=== PATIENT | female | born 1940 | race Caucasian/White ===

== ENCOUNTER 2017-07-06 12:31 | Outpatient (CLI) | payer MEDICARE, OTHER ==
--- NOTE | 2017-07-07 15:52 | DEXA Report ---
DEXA: 07/06/2017 CLINICAL INDICATION: Postmenopausal. TECHNIQUE: Dual energy x-ray absorptiometry (DXA) was performed on a S3Bubble system. Regions measured are the AP spine, femoral neck, and, if needed, forearm. COMPARISON: None. In accordance with the International Society for Clinical Densitometry (ISCD) guidelines, data from previous exams may be reanalyzed using current recommendations and techniques. This is done to allow a more accurate basis for comparison with the current study. FINDINGS The data for the lumbar spine is as follows: REGION BMD (g/cm/cm) T-SCORE Z-SCORE L1 0.804 -2.7 -1.7 L2 0.882 -2.7 -1.7 L3 1.165 -0.3 0.7 L4 1.217 0.1 1.1 TOTAL 1.035 -1.2 -0.2 NOTE: All evaluable vertebrae are used for classification. The data for the hip is as follows: REGION BMD (g/cm/cm) T-SCORE Z-SCORE Neck 0.762 -2.0 -0.4 TOTAL 0.808 -1.6 -0.2 NOTE: The femoral neck or total proximal femur, whichever is lowest, is used for classification. IMPRESSION: THE WHO CLASSIFICATION BASED ON THE INTERNATIONAL REFERENCE STANDARD IS OSTEOPENIA. THE FRACTURE RISK IS INCREASED. RECOMMENDATION: Patients with diagnosis of osteoporosis or osteopenia should have regular bone mineral density assessment. For those eligible for Medicare, routine testing is allowed once every 2 years. Testing frequency can be increased for patients who have rapidly progressing disease or for those who are receiving medical therapy to restore bone mass. COMMENT: World Health Organization (WHO) definitions for osteoporosis and osteopenia: NORMAL BMD: T-score at -1.0 or higher, fracture risk is low. OSTEOPENIA BMD: T-score between -1.0 and -2.5, fracture risk is increased. OSTEOPOROSIS BMD: T-score at -2.5 or lower, fracture risk high. National Osteoporosis Foundation recommends: 1. Obtain adequate dietary calcium (at least 1200 mg per day) and vitamin D (400 -800 international units per day). 2. Participate, as appropriate, in regular weightbearing and muscle- strengthening exercise. 3. Avoid tobacco use and reduce alcohol and caffeine intake. 4. For more detailed information see the website at www.NOF.org. MTDD
== END 2017-07-06 12:32 | disposition home or self-care (01) ==
LOC: DI 12:31
PROVIDERS: ATTEND Physician Assistant
DX: Z13.820 Encounter for screening for osteoporosis (principal); M85.89 Other specified disorders of bone density and structure, multiple sites; Z78.0 Asymptomatic menopausal state
CPT/HCPCS: 77080

== ENCOUNTER 2017-07-06 12:31 | Outpatient (CLI) | payer MEDICARE, OTHER ==
--- NOTE | 2017-07-07 13:13 | Mammography Report ---
DIGITAL SCREENING MAMMOGRAM: 07/06/2017 CLINICAL INDICATION: A 76-year-old with history of benign right breast biopsy for screening. COMPARISON: 06/2015, 11/2011, 09/2010, 05/2008 TECHNIQUE: Routine CC and MLO projections were obtained of the breasts. FINDINGS: The breasts again demonstrate scattered fibroglandular densities. Punctate, typically mitul ign calcifications are present. Biopsy marker in the right breast is stable. No suspicious masses, clustered microcalcifications, or regions of architectural distortion are identified. IMPRESSION: BENIGN FINDINGS. RECOMMENDATION: Routine annual screening unless otherwise clinically indicated. BIRADS CATEGORY 2 - BENIGN FINDINGS. STANDARD QUALIFYING STATEMENTS 1. This examination was reviewed with the aid of Computer-Aided Detection (CAD). 2. A negative or benign imaging report should not delay biopsy if clinically suspicious findings are present. Consider surgical consultation if warranted. More than 5% of cancers are not identified by i maging. 3. Dense breasts may obscure an underlying neoplasm. JOB #: [id number] EXT JOB #:[id number]
== END 2017-07-06 12:32 | disposition home or self-care (01) ==
LOC: DI 12:31
PROVIDERS: ATTEND Physician Assistant
DX: Z12.31 Encounter for screening mammogram for malignant neoplasm of breast (principal)
CPT/HCPCS: 77067

== ENCOUNTER 2018-09-10 11:54 | Outpatient (CLI) | payer MEDICARE, OTHER ==
--- NOTE | 2018-09-11 06:59 | XRAY Report ---
Reason: PAIN IN RIGHT FINGER Procedure Date: 09/10/2018 Accession Number: [id number] / [id number] Procedure: XR - Hand 3 View RT CPT Code: FULL RESULT: EXAM: RIGHT HAND RADIOGRAPHY EXAM DATE: 09/10/2018 12:14 PM. CLINICAL HISTORY: Pain in right finger. COMPARISON: None. TECHNIQUE: 3 views. FINDINGS: Bones: Bone density is within normal limits for age. No acute fractures appreciated. Joints: There is significant degenerative productive arthritis throughout the digits and at base of thumb, with greatest involvement of the fourth IP joint. There is prominent joint space narrowing of the STT joint with subchondral sclerosis. Soft Tissues: Mild soft tissue swelling of the proximal fourth digit. IMPRESSION: Significant, diffuse productive arthritis. No acute fracture appreciated. RADIA
== END 2018-09-10 11:55 | disposition home or self-care (01) ==
LOC: DI 11:54
PROVIDERS: ATTEND Physician Assistant
DX: M19.041 Primary osteoarthritis, right hand (principal)

== ENCOUNTER 2018-11-05 10:28 | Emergency (ER) | payer MEDICARE, OTHER ==
--- NOTE | 2018-11-05 11:59 | ED Physician Documentation ---
PD HPI DYSPNEA - Stated complaint Stated Complaint: SOA - Chief complaint Chief Complaint: Resp - History obtained from History obtained from: Patient - History of Present Illness Timing - onset: How many days ago (5-6) Timing - onset during: Rest, Light activity Timing - details: Gradual onset, Still present Inciting event(s): URI, Immobilization/travel (flew to [place] and then was on a cruise. She says she started feeling dyspnea on arrival there, felt it was the heat/humidity. Was on cruise 5-6 days and ate regular foods. Noted leg swelling both legs. Flew back just today and is feeling worse dyspnea and leg swelling.). No: Out of meds Worsened by: Exertion, Laying flat, Coughing (has mild nonproductive cough.) Associated symptoms: Cough, Chest pain / discomfort, Bilateral edema. No: Fever, Wheezing Similar symptoms before: Has not had sx before Recently seen: Not recently seen Review of Systems Constitutional: denies: Fever Nose: reports: Congestion Cardiac: reports: Chest pain / pressure, Pedal edema. denies: Palpitations, Calf pain Respiratory: reports: Dyspnea, Cough, Wheezing GI: denies: Abdominal Pain, Nausea, Vomiting, Diarrhea Skin: denies: Rash, Lesions PD PAST MEDICAL HISTORY - Past Medical History Cardiovascular: Hypertension Respiratory: Asthma Endocrine/Autoimmune: Type 2 diabetes, HyPOthyroidism GI: None : None, Incontinence HEENT: None Psych: None Musculoskeletal: Osteoarthritis Derm: None - Past Surgical History Derm: Skin cancer surgery - Present Medications Home Medications: Ambulatory Orders Medication Instructions Recorded Confirmed Furosemide 25 mg PO DAILY 09/02/15 11/05/18 Losartan [Cozaar] 25 mg PO DAILY 09/02/15 11/05/18 metFORMIN [Glucophage] 500 mg ORAL BID 09/02/15 11/05/18 Fluticasone/Salmeterol [Advair 09/16/15 09/16/15 500-50 Diskus] Albuterol Sulfate [Proair Hfa 1 - 2 puffs INH Q4H PRN 11/05/18 11/05/18 Inhaler] Dexamethasone [Decadron] 4 mg PO DAILY #5 tablet 11/05/18 - Allergies Allergies/Adverse Reactions: Allergies Allergy/AdvReac Type Severity Reaction Status Date / Time No Known Drug Allergies Allergy Verified 11/05/18 10:38 PD ED PE NORMAL - Vitals Vital signs reviewed: Yes - General General: Alert and oriented X 3, No acute distress, Well developed/nourished - HEENT HEENT: Ears normal, Pharynx benign - Neck Neck: Supple, no meningeal sign, No adenopathy, No JVD - Cardiac Cardiac: RRR - Respiratory Respiratory: Clear bilaterally - Abdomen Abdomen: Soft, Non tender - Derm Derm: Warm and dry, No rash. No: Normal color - Extremities Extremities: No tenderness to palpate, Normal ROM s pain, No calf tenderness / cord, Other (2+ edema in both lower legs up to just below the knees. ) - Neuro Neuro: Alert and oriented X 3, No motor deficit, No sensory deficit Results - Vitals Vitals: Vital Signs - 24 hr 11/05/18 11/05/18 11/05/18 10:35 12:33 12:38 Temperature 36 C L Heart Rate 67 61 59 L Respiratory 22 18 16 Rate Blood Pressure 198/108 H 180/94 H 180/94 H O2 Saturation 97 98 97 11/05/18 11/05/18 13:56 15:04 Temperature Heart Rate 65 66 Respiratory 18 18 Rate Blood Pressure 159/64 H 153/64 H O2 Saturation 98 98 Oxygen O2 Source Room air - Labs Labs: Laboratory Tests 11/05/18 11/05/18 11/05/18 12:02 12:02 12:02 WBC 5.5 RBC 4.31 Hgb 12.3 Hct 36.3 L MCV 84.3 MCH 28.5 MCHC 33.8 RDW 14.7 Plt Count 226 MPV 8.3 Neut # (Auto) 3.6 Lymph # (Auto) 1.2 L [place] # (Auto) 0.4 Eos # (Auto) 0.2 Baso # (Auto) 0.0 Absolute Nucleated RBC 0.00 Nucleated RBC % 0.0 D-Dimer Sodium 138 Potassium 4.0 Chloride 104 Carbon Dioxide 25 Anion Gap 9.0 BUN 16 Creatinine 0.9 Estimated GFR (MDRD) 60 L Glucose 115 H Calcium 8.7 Magnesium Total Bilirubin 0.7 AST 26 ALT 31 Alkaline Phosphatase 52 Troponin I < 0.04 B-Natriuretic Peptide Total Protein 7.0 Albumin 3.6 Globulin 3.4 Albumin/Globulin Ratio 1.1 Lipase 40 11/05/18 11/05/18 11/05/18 12:02 12:02 12:02 WBC RBC Hgb Hct MCV MCH MCHC RDW Plt Count MPV Neut # (Auto) Lymph # (Auto) [place] # (Auto) Eos # (Auto) Baso # (Auto) Absolute Nucleated RBC Nucleated RBC % D-Dimer 296.9 H Sodium Potassium Chloride Carbon Dioxide Anion Gap BUN Creatinine Estimated GFR (MDRD) Glucose Calcium Magnesium 2.3 Total Bilirubin AST ALT Alkaline Phosphatase Troponin I B-Natriuretic Peptide 190 H Total Protein Albumin Globulin Albumin/Globulin Ratio Lipase - Rads (name of study) chest xray Radiology: Prelim report reviewed (some vascular congestion with edema. FLattening of diaphragm c/w overinflation/COPD. ) PD MEDICAL DECISION MAKING - ED course Complexity details: reviewed results (chest xray showing some vascular congestion. BNP is some elevated. Lung sounds are c/w vascular congestion. Her d-dimer is mildly elevated by our lab range, but is in normal range when referencing EM literature stating 500 to be the demarcation from normal to abn. Other labs are good. Some elvation COPF), re-evaluated patient (improved with diuresis, has had about 1300 ml out here in ED.), considered differential (concern for colds, flu, bacterial secondary infection, CHF/IN, PTX, PE, anemia.), d/w patient Departure - Departure Disposition: 01 Home, Self Care Clinical Impression: Shortness of breath Congestive heart failure Qualifiers: Heart failure type: unspecified Heart failure chronicity: acute Qualified Code(s): I50.9 - Heart failure, unspecified Exacerbation of asthma Qualifiers: Asthma severity: mild Asthma persistence: intermittent Qualified Code(s): J45.21 - Mild intermittent asthma with (acute) exacerbation Condition: Stable Record reviewed to determine appropriate education?: Yes Instructions: ED CHF General Follow-Up: Tia Lipscomb PA [Primary Care Provider] - Prescriptions: Dexamethasone [Decadron] 4 mg PO DAILY #5 tablet Comments: It appears like an exacerbation of your asthma combined with certainly some extra fluid retention leading to the trouble breathing. For the asthma component, use your albuterol inhaler 2 puffs 4 times a day for the next week or so regularly. Also add Decadron steroid for bronchial inflamma tion daily for 5 more days. For the fluid retention, I would double the dose of your furosemide diuretic. I would take your normal morning dose and then take a second dose at early afternoon, around 12-2 or so. I would do that for 3-5 more days. If you are able to check your blood pressure at home, over the next several days if your blood pressure is elevated then also take double your losartan (so 50 instead of 25 mg) daily for the next few days. After the next few days if you are feeling better in your edema is improved then just go back to your normal doses. Discharge Date/Time: 11/05/18 15:05
[2018-11-05 12:10] LABS: BASOPHILS % (AUTO) 0.9 %; EOSINOPHILS # (AUTO) 0.2 10^3/uL (0.0-0.7); EOSINOPHILS % (AUTO) 3.2 %; HGB - HEMOGLOBIN 12.3 g/dL (12.0-16.0); LYMPHOCYTES # (AUTO) 1.2 10^3/uL (1.5-3.5); LYMPHOCYTES % (AUTO) 22.5 %; MEAN CORPUSCULAR HEMOGLOBIN 28.5 pg (27.0-31.0); MEAN CORPUSCULAR HGB CONC 33.8 g/dL (32.0-36.0); MEAN CORPUSCULAR VOLUME 84.3 fL (81.0-99.0); MEAN PLATELET VOLUME 8.3 fL (7.9-10.8); MONOCYTES # (AUTO) 0.4 10^3/uL (0.0-1.0); MONOCYTES % (AUTO) 7.1 %; NEUTROPHILS # (AUTO) 3.6 10^3/uL (1.5-6.6); NEUTROPHILS % (AUTO) 66.3 %; PLT - PLATELET COUNT 226 10^3/uL (130-450); RED BLOOD COUNT 4.31 10^6/uL (4.20-5.40); RED CELL DISTRIBUTION WIDTH 14.7 % (12.0-15.0); WHITE BLOOD COUNT 5.5 x10^3/uL (4.8-10.8)
[2018-11-05 12:23] LABS: ALBUMIN 3.6 g/dL (3.2-5.5); ALBUMIN/GLOBULIN RATIO 1.1 (1.0-2.2); BILIRUBIN,TOTAL 0.7 mg/dL (0.2-1.0); CALCIUM 8.7 mg/dL (8.5-10.3); CREATININE 0.9 mg/dL (0.4-1.0)
[2018-11-05] MEDS ORDERED: FUROSEMIDE 40 MG/4 ML VIAL IVP STA (12:33)
[2018-11-05] MEDS ORDERED: ALBUTEROL NEB 2.5 MG/3 ML INH STA (12:33)
[2018-11-05] MEDS ORDERED: NITROGLYCERIN SL 0.4 MG TABLET SL STA (12:35)
--- NOTE | 2018-11-05 12:52 | XRAY Report ---
Reason: SOA Procedure Date: 11/05/2018 Accession Number: [id number] / [id number] Procedure: XR - Chest 2 View X-Ray CPT Code: 49921 FULL RESULT: EXAM: CHEST RADIOGRAPHY EXAM DATE: 11/05/2018 11:18 AM. CLINICAL HISTORY: Shortness of breath. COMPARISON: CHEST 2 VIEW PA/LAT 05/05/2015 10:41 AM. TECHNIQUE: 2 views. FINDINGS: Lungs/Pleura: Lungs are hyperexpanded with flattening of the diaphragm, similar to prior. Mild pulmonary vascular congestion and interstitial prominence appears increased compared to prior. No focal pulmonary consolidation. There are trace bilateral pleural effusions. No pneumothorax. Mediastinum: There is mild enlargement of the cardiac silhouette, increased compared to prior. There is mild atherosclerotic calcification of the aortic arch. Other: No acute osseous abnormality. There are mild degenerative disk changes of the thoracic spine. IMPRESSION: 1. Mild CHF/fluid overload pattern including mild pulmonary vascular congestion, interstitial prominence, and mild cardiomegaly. Findings appear worsened compared to the prior exam from 05/05/2015. 2. Trace bilateral pleural effusions. 3. Lungs are hyperexpanded with flattening of the diaphragm, similar to prior, suggestive of COPD/emphysema. RADIA
[2018-11-05 15:04] VITALS: BP 153/64
== END 2018-11-05 15:05 | disposition home or self-care (01) ==
LOC: ED 10:28
DX: I11.0 Hypertensive heart disease with heart failure (principal); I50.9 Heart failure, unspecified; J45.21 Mild intermittent asthma with (acute) exacerbation; E11.9 Type 2 diabetes mellitus without complications; Z79.84 Long term (current) use of oral hypoglycemic drugs
CPT/HCPCS: 36415; 71046; 80053; 83690; 83735; 83880; 84484; 85025; 85379; 93005; 96374; 99283; 99284; A9270

== ENCOUNTER 2018-11-23 11:11 | Outpatient (CLI) | payer MEDICARE, OTHER | END 2018-11-23 11:12 | disposition home or self-care (01) | LOC: DI 11:11 | PROVIDERS: ATTEND Physician Assistant | DX: I50.9 Heart failure, unspecified (principal) | CPT/HCPCS: 36415; 83880; 93306 ==

== ENCOUNTER 2018-11-23 11:57 | Outpatient (CLI) | payer MEDICARE, OTHER | END 2018-11-23 11:58 | disposition home or self-care (01) | LOC: LAB 11:57 | PROVIDERS: ATTEND Physician Assistant | DX: I50.9 Heart failure, unspecified (principal) | CPT/HCPCS: 36415; 83880 ==

== ENCOUNTER 2018-12-06 13:32 | Outpatient (CLI) | payer MEDICARE, OTHER ==
[2018-12-06 14:11] LABS: CALCIUM 9.2 mg/dL (8.5-10.3)
[2018-12-06 14:51] LABS: BILIRUBIN,URINE NEGATIVE (NEGATIVE); GLUCOSE, URINE (UA) NEGATIVE (NEGATIVE); KETONES,URINE (UA) NEGATIVE (NEGATIVE); LEUKOCYTE ESTERASE, URINE TRACE (NEGATIVE); NITRITE,URINE NEGATIVE (NEGATIVE); OCCULT BLOOD,URINE NEGATIVE (NEGATIVE); PROTEIN,URINE NEGATIVE (NEGATIVE); UROBILINOGEN,URINE 0.2 (NORMAL) E.U./dL (NORMAL)
[2018-12-06 15:00] LABS: CLARITY,URINE HAZY (CLEAR)
== END 2018-12-06 13:33 | disposition home or self-care (01) ==
LOC: LAB 13:32
PROVIDERS: ATTEND Internal Medicine Cardiovascular Disease
DX: I50.9 Heart failure, unspecified (principal)
CPT/HCPCS: 36415; 80048; 81003

== ENCOUNTER 2019-03-07 05:56 | Outpatient (CLI) | payer MEDICARE, OTHER | END 2019-03-07 05:57 | disposition critical access hospital (66) | LOC: EMS 05:56 | PROVIDERS: ATTEND Surgery | DX: R53.1 Weakness (principal) | CPT/HCPCS: A0425; A0429 ==

== ENCOUNTER 2019-03-07 06:18 | Observation (INO) | payer MEDICARE, OTHER ==
[2019-03-07] MEDS ORDERED: ALBUTEROL NEB 2.5 MG/3 ML INH STA (06:44)
--- NOTE | 2019-03-07 06:44 | ED Physician Documentation ---
<Richi Vaca - Last Filed: 03/07/19 12:55> History of Present Illness - Stated complaint Stated Complaint: WEAKNESS - Chief complaint Chief Complaint: Neuro PD PAST MEDICAL HISTORY - Present Medications Home Medications: Ambulatory Orders Medication Instructions Recorded Confirmed Losartan [Cozaar] 25 mg PO DAILY 09/02/15 03/07/19 RX: Furosemide 20 mg PO DAILY PRN 09/02/15 03/07/19 RX: metFORMIN [Glucophage] 1,000 mg ORAL DAILY 09/02/15 03/07/19 Albuterol Sulfate [Proair Hfa 1 - 2 puffs INH Q4H PRN 11/05/18 03/07/19 Inhaler] Cholecalciferol (Vitamin D3) 1 cap PO DAILY 03/07/19 03/07/19 [Vitamin D3] Fluticasone/Salmeterol [Advair 1 puffs INH BID 03/07/19 03/07/19 250-50 Diskus] [place]-3/Dha/Epa/Fish Oil [Fish Oil 1 cap PO DAILY 03/07/19 03/07/19 1,000 mg Softgel] Rosuvastatin Calcium [Crestor] 5 mg PO DAILY 03/07/19 03/07/19 metFORMIN [Glucophage] 500 mg PO 1700 03/07/19 03/07/19 - Allergies Allergies/Adverse Reactions: Allergies Allergy/AdvReac Type Severity Reaction Status Date / Time No Known Drug Allergies Allergy Verified 11/05/18 10:38 PD ED PE NORMAL - Derm Derm: Other (left lower leg, lateral aspect with some local swelling, redness and warmth. No pustules nor vesicles.) - Extremities Extremities: No calf tenderness / cord, Other Results - Rads (name of study) chest xray Radiology: Prelim report reviewed (increased vascularity and interstitial, consider CHF), See rad report PD MEDICAL DECISION MAKING - ED course Complexity details: re-evaluated patient (The patient is having improved breathing after nebulizer treatment. I assumed care of the patient from Dr. Archer. Her oxygen saturations are between 91 and 93% on room air lying down. However when she was subsequently stood up to try attempting ambulation, she had enough general weakness to require 1 or 2 people assistance in getting up and her oxygenation did go down below 89% while standing. She was placed back on 2 L nasal cannula oxygen. She does have the cough and fever she has had for several days and has increased in the last day or 2. This sounds [place] or clinically pneumonia though her chest x-ray does not show infiltrates per se. Her BNP is not that high and her lungs do not sound wet so I do not think she has CHF per se even though the chest x-ray is perhaps suggestive of that.), d/w sales and service consultant (Hospitalist) Departure - Departure Disposition: ED Place in Observation Clinical Impression: Fever, Weakness generalized, Exacerbation of asthma, Lower resp. tract infection, Lower extremity cellulitis Condition: Stable Record reviewed to determine appropriate education?: Yes Discharge Date/Time: 03/07/19 13:22 <Liss Guan - Last Filed: 03/07/19 21:04> History of Present Illness - History obtained from History obtained from: Patient - History of Present Illness Timing: Yesterday - Additonal information Additional information: This is an 78-year-old woman who lives alone last night she was getting up off the toilet and had walked out towards the living room when she fell landing on her butt. She was able to crawl in the living room and crawl up into her chair where she slept a little bit through the night then she got up this morning and fell again while it was still dark outside. Then she just laid on the floor for a while where she was able to crawl over to the corner to get her phone. She called 911. She is that she has been feeling short of breath and in fact had to use her rescue inhaler last night. She has a history of asthma. She denies an y current chest pain and denies any history of heart disease or congestive heart failure. In fact she says she was seen back in October by a crop duster and was told that her heart was in good shape.She did not hit her head last night. Denies dizziness. She has been coughing occasionally bringing up some white phlegm and she has a stuffiness in her nose blowing out white mucus. She has not had a fever but did feel hot. She denies nausea or vomiting. Review of Systems Constitutional: denies: Fever Nose: reports: Rhinorrhea / runny nose, Congestion Cardiac: denies: Chest pain / pressure, Palpitations Respiratory: reports: Dyspnea, Cough. denies: Hemoptysis GI: denies: Abdominal Pain, Nausea, Vomiting : denies: Dysuria, Frequency Skin: denies: Rash Musculoskeletal: reports: Back pain Neurologic: reports: Generalized weakness. 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 : None, Incontinence HEENT: None Psych: None Musculoskeletal: Osteoarthritis Derm: None - Past Surgical History Past Surgical History: Yes HEENT: Tonsil/Adenoidectomy Derm: Skin cancer surgery - Social History Does the pt smoke?: No Smoking Status: Former smoker Does the pt drink ETOH?: Yes Does the pt have substance abuse?: No - Immunizations Immunizations are current?: Yes - POLST Patient has POLST: No PD ED PE NORMAL - Vitals Vital signs reviewed: Yes (Patient is dyspneic.) - General General: Alert and oriented X 3, Well developed/nourished (Obese) - HEENT HEENT: Atraumatic, PERRL, EOMI, Other (Mucous membranes are dry) - Neck Neck: Supple, no meningeal sign, No adenopathy - Cardiac Cardiac: RRR, Other (There is a 2/6 systolic murmur at the left upper sternal border) - Respiratory Respiratory: Other (She is tachypneic. There are diminished breath sounds throughout the lung russell.) - Abdomen Abdomen: Normal bowel sounds, Soft, Non tender - Derm Derm: Normal color, Warm and dry, No rash - Extremities Extremities: No deformity, Other (She has 2+ pitting edema of the lower extre mities bilaterally. 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, No motor deficit, No sensory deficit, Normal speech - Psych Psych: Normal mood, Normal affect Results - Vitals Vitals: Vital Signs - 24 hr 03/07/19 03/07/19 03/07/19 06:18 06:26 07:05 Temperature 37.8 C H 39.3 C H Heart Rate 104 H 92 91 Respiratory 22 36 H 30 H Rate Blood Pressure 191/71 H 191/79 H O2 Saturation 95 94 03/07/19 03/07/19 03/07/19 08:25 09:30 11:06 Temperature 38.5 C H 38.4 C H 38.5 C H Heart Rate 87 85 75 Respiratory 18 19 24 Rate Blood Pressure 151/50 H 155/52 H 158/60 H O2 Saturation 97 91 L 94 03/07/19 11:14 Temperature 39.1 C H Heart Rate Respiratory Rate Blood Pressure O2 Saturation Oxygen O2 Source Room air - EKG (time done) 0700 Rate: Rate (enter#) Rhythm: NSR Ischemia: Normal ST segments Compare to prior EKG: Old EKG unavailable - Labs Labs: Laboratory Tests 03/07/19 03/07/19 03/07/19 06:50 06:50 06:50 WBC 15.7 H RBC 4.60 Hgb 13.0 Hct 39.0 MCV 84.7 MCH 28.3 MCHC 33.4 RDW 14.7 Plt Count 195 MPV 8.5 Neut # (Auto) 14.6 H Lymph # (Auto) 0.7 L [place] # (Auto) 0.4 Eos # (Auto) 0.0 Baso # (Auto) 0.0 Absolute Nucleated RBC 0.00 Nucleated RBC % 0.0 Sodium 136 Potassium 4.2 Chloride 103 Carbon Dioxide 19 L Anion Gap 14.0 H BUN 23 H Creatinine 1.1 H Estimated GFR (MDRD) 48 L Glucose 216 H Lactic Acid Calcium 8.8 Total Bilirubin 1.1 H AST 26 ALT 25 Alkaline Phosphatase 52 Troponin I < 0.04 B-Natriuretic Peptide Total Protein 7.3 Albumin 3.9 Globulin 3.4 Albumin/Globulin Ratio 1.1 Lipase 34 Urine Color Urine Clarity Urine pH Ur Specific [place] Urine Protein Urine Glucose (UA) Urine Ketones Urine Occult Blood Urine Nitrite Urine Bilirubin Urine Urobilinogen Ur Leukocyte Esterase Urine RBC Urine WBC Ur Squamous Epith Cells Urine Bacteria Ur Microscopic Review Urine Culture Comments 03/07/19 03/07/19 03/07/19 06:50 08:39 09:41 WBC RBC Hgb Hct MCV MCH MCHC RDW Plt Count MPV Neut # (Auto) Lymph # (Auto) [place] # (Auto) Eos # (Auto) Baso # (Auto) Absolute Nucleated RBC Nucleated RBC % Sodium Potassium Chloride Carbon Dioxide Anion Gap BUN Creatinine Estimated GFR (MDRD) Glucose Lactic Acid 1.4 Calcium Total Bilirubin AST ALT Alkaline Phosphatase Troponin I B-Natriuretic Peptide 302 H Total Protein Albumin Globulin Albumin/Globulin Ratio Lipase Urine Color YELLOW Urine Clarity CLEAR Urine pH 5.5 Ur Specific [place] 1.025 Urine Protein TRACE Urine Glucose (UA) NEGATIVE Urine Ketones TRACE Urine Occult Blood SMALL H Urine Nitrite NEGATIVE Urine Bilirubin NEGATIVE Urine Urobilinogen 0.2 (NORMAL) Ur Leukocyte Esterase NEGATIVE Urine RBC 0-5 Urine WBC 0-3 Ur Squamous Epith Cells NONE SEEN Urine Bacteria None Seen Ur Microscopic Review INDICATED Urine Culture Comments NOT INDICATED PD MEDICAL DECISION MAKING - ED course ED course: Albuterol, labs and CXR odered. Care turned over to Dr Vaca at [id number].
[2019-03-07 06:59] LABS: BASOPHILS % (AUTO) 0.3 %; EOSINOPHILS % (AUTO) 0.1 %; LYMPHOCYTES # (AUTO) 0.7 10^3/uL (1.5-3.5); LYMPHOCYTES % (AUTO) 4.4 %; MEAN CORPUSCULAR HEMOGLOBIN 28.3 pg (27.0-31.0); MEAN CORPUSCULAR HGB CONC 33.4 g/dL (32.0-36.0); MEAN CORPUSCULAR VOLUME 84.7 fL (81.0-99.0); MEAN PLATELET VOLUME 8.5 fL (7.9-10.8); MONOCYTES # (AUTO) 0.4 10^3/uL (0.0-1.0); MONOCYTES % (AUTO) 2.4 %; NEUTROPHILS # (AUTO) 14.6 10^3/uL (1.5-6.6); NEUTROPHILS % (AUTO) 92.8 %; PLT - PLATELET COUNT 195 10^3/uL (130-450); RED CELL DISTRIBUTION WIDTH 14.7 % (12.0-15.0); WHITE BLOOD COUNT 15.7 x10^3/uL (4.8-10.8)
[2019-03-07 07:17] LABS: ALBUMIN 3.9 g/dL (3.2-5.5); ALBUMIN/GLOBULIN RATIO 1.1 (1.0-2.2); BILIRUBIN,TOTAL 1.1 mg/dL (0.2-1.0); CALCIUM 8.8 mg/dL (8.5-10.3); CREATININE 1.1 mg/dL (0.4-1.0); TOTAL PROTEIN 7.3 g/dL (6.7-8.2)
--- NOTE | 2019-03-07 07:58 | XRAY Report ---
Reason: chest pain Procedure Date: 03/07/2019 Accession Number: [id number] / [id number] Procedure: XR - Chest 1 View X-Ray CPT Code: 36043 FULL RESULT: EXAM: CHEST RADIOGRAPHY EXAM DATE: 03/07/2019 07:24 AM. CLINICAL HISTORY: Chest Pain. COMPARISON: CHEST 2 VIEW 11/05/2018 11:04 AM. TECHNIQUE: 1 view. FINDINGS: Lungs/Pleura: Borderline pulmonary vascular congestion and increased interstitial markings are seen. There is no effusion, pneumothorax, or consolidation. Mediastinum: Cardiac silhouette is borderline enlarged. Heart and mediastinal contours are notable for aortic calcification. Other: None. IMPRESSION: Borderline CHF/fluid overload. RADIA
--- NOTE | 2019-03-07 07:59 | XRAY Report ---
Reason: pain, fell landing on butt Procedure Date: 03/07/2019 Accession Number: [id number] / [id number] Procedure: XR - Lumbar Spine 2 View CPT Code: FULL RESULT: EXAM: LUMBOSACRAL SPINE RADIOGRAPHY EXAM DATE: 03/07/2019 07:24 AM. CLINICAL HISTORY: Low back pain. COMPARISONS: None. TECHNIQUE: 3 views. FINDINGS: Alignment: Minimal L4-L5 anterolisthesis measuring 4 mm is seen. Alignment is otherwise preserved. Bones: Five [id number] lumbar vertebral bodies are present. Bones are osteopenic. No fracture is definitively seen. Disks: There is mild diffuse degenerative disk disease seen throughout the mid and lower aspects of the lumbar spine. Facets: There is moderate diffuse degenerative facet disease seen throughout the mid and lower aspect of the lumbar spine. Sacroiliac Joints: Unremarkable. Soft Tissues: Normal. The visualized bowel gas pattern is normal. IMPRESSION: No acute osseous abnormality definitively seen. RADIA
[2019-03-07 09:51] LABS: BILIRUBIN,URINE NEGATIVE (NEGATIVE); CLARITY,URINE CLEAR (CLEAR); GLUCOSE, URINE (UA) NEGATIVE (NEGATIVE); KETONES,URINE (UA) TRACE mg/dL (NEGATIVE); LEUKOCYTE ESTERASE, URINE NEGATIVE (NEGATIVE); NITRITE,URINE NEGATIVE (NEGATIVE); OCCULT BLOOD,URINE SMALL (NEGATIVE); PH,URINE 5.5 PH (5.0-7.5); PROTEIN,URINE TRACE mg/dL (NEGATIVE); UROBILINOGEN,URINE 0.2 (NORMAL) E.U./dL (NORMAL)
[2019-03-07 09:56] LABS: BACTERIA,URINE None Seen /HPF (None Seen); RBC,URINE 0-5 /HPF (0-5); SQUAMOUS EPITHELIAL CELL,UR NONE SEEN (<= Few)
[2019-03-07] MEDS ORDERED: DEXAMETHASONE 10 MG/ML VIAL IVP STA (10:35)
[2019-03-07] MEDS ORDERED: DOXYCYCLINE 100 MG TABLET PO STA (10:35)
[2019-03-07] MEDS ORDERED: ZOLPIDEM 5 MG TABLET PO PRN (11:47)
[2019-03-07] MEDS ORDERED: SODIUM CHLORIDE FLUSH 0.9% 10 ML SYRINGE IVP PRN (11:47)
[2019-03-07] MEDS ORDERED: ACETAMINOPHEN 325 MG TABLET PO PRN (11:47)
[2019-03-07] MEDS ORDERED: ONDANSETRON ODT 4 MG TABLET TL PRN (11:47)
[2019-03-07] MEDS ORDERED: PROCHLORPERAZINE 10 MG/2 ML VIAL IVP PRN (11:47)
[2019-03-07] MEDS ORDERED: hydrALAZINE INJ 20 MG/ML VIAL IVP PRN (11:54)
--- NOTE | 2019-03-07 12:18 | HISTORY & PHYSICAL EXAMINATION ---
Chief Complaint - Chief Complaint Chief Complaint: Nonproductive cough with associated fever, generalized weakness History of Present Illness - Admitted From Admitted From:: ED - History Obtained From Records Reviewed: Yes History obtained from: Yes Exam Limitations: None - History of Present Illness HPI Comment/Other: This is an 78-year-old woman who lives alone With a significant past medical history of asthma, oro-yxdqvhf-qehvrnkun type 2 diabetes mellitus, hypothyroidism, hypertension, osteoarthritis, morbid obesity with BMI 40.7, former smoker, chronic lymphedema who p/w fever Tm 102.3, Nonproductive cough with generalized malaise/weakness along with worsening lower extremity swelling with pain to the left lower extremity versus right lower extremity. Patient last night she was getting up off the toilet and had walked out towards the living room when she fell landing on her butt. She was able to crawl in the living room and crawl up into her chair where she slept a little bit through the night then she got up this morning and fell again while it was still dark outside. Then she just laid on the floor for a while where she was able to crawl over to the corner to get her phone. She called 911. She is that she has been feeling short of breath and in fact had to use her rescue inhaler last night. She denies any current chest pain and denies any history of heart disease or congestive heart failure. In fact she says she was seen back in October by a recreational leader and was told that her heart was in good shape. She did not hit her head last night. Denies dizziness. She has been coughing occasionally bringing up some white phlegm and she has a stuffiness in her nose blowing out white mucus. She denies nausea or vomiting. Patient states that she has had upper respiratory symptoms ever since her [place] cruise that she came back after October. On exam patient had erythematous left lower extremity involvement with no satellite pustules or bullous lesions. On the initial lab/imaging assessment patient was found to have a BNP of 302 with a chest x-ray showing borderline CHF with fluid overload and could not appreciate consolidations or infiltrates due to this. CO2 was 19, glucose 216, creatinine 1.1 with baseline creatinine ranging between 0.8-1.0 with prior history of chronic kidney disease, T bilirubin of 1.1, LFTs within normal limits, troponin x1 within normal limits, EKG showed Borderline left axis deviation with sinus rhythm. Patient's WBC count was 15.7 with normal electrolytes. Patient had an L-spine x-ray due to her falling down with no evidence of fractures other than degenerative disc disease. 2 sets of blood cultures were drawn, lactic acid was 1.4, flu swab as well as throat culture group A strep sputum Gram stain culture were ordered in the ED. Patient will be admitted for further evaluation management and treatment under obvious status. History - Past Medical History Cardiovascular: reports: Hypertension Respiratory: reports: Asthma Neuro: reports: None Endocrine/Autoimmune: reports: Type 2 diabetes, HyPOthyroidism GI: reports: None STRIPPER BLACK AND WHITE: reports: None : reports: None, Incontinence HEENT: reports: None Psych: reports: None Musculoskeletal: reports: Osteoarthritis Derm: reports: None MRSA Hx?: No - Past Surgical History HEENT: reports: Tonsil/Adenoidectomy Derm: reports: Skin cancer surgery - POLST Patient has POLST: No Meds/Allgy - Home Medications Home Medications: Ambulatory Orders Medication Instructions Recorded Confirmed Furosemide 20 mg PO DAILY PRN 09/02/15 03/07/19 Losartan [Cozaar] 25 mg PO DAILY 09/02/15 03/07/19 metFORMIN [Glucophage] 1,000 mg ORAL DAILY 09/02/15 03/07/19 Albuterol Sulfate [Proair Hfa 1 - 2 puffs INH Q4H PRN 11/05/18 03/07/19 Inhaler] Cholecalciferol (Vitamin D3) 1 cap PO DAILY 03/07/19 03/07/19 [Vitamin D3] Fluticasone/Salmeterol [Advair 1 puffs INH BID 03/07/19 03/07/19 250-50 Diskus] [place]-3/Dha/Epa/Fish Oil [Fish Oil 1 cap PO DAILY 03/07/19 03/07/19 1,000 mg Softgel] Rosuvastatin Calcium [Crestor] 5 mg PO DAILY 03/07/19 03/07/19 metFORMIN [Glucophage] 500 mg PO 1700 03/07/19 03/07/19 - Allergies Allergies/Adverse Reactions: Allergies Allergy/AdvReac Type Severity Reaction Status Date / Time No Known Drug Allergies Allergy Verified 11/05/18 10:38 Review of Systems - All Other Systems All Other Systems: reports: Reviewed and negative Prior Level of Functionality: Patient's prior Functional capacity was ambulatory with adequate home ADLs Exam - Vital Signs Reviewed Vital Signs: Yes Vital Signs: Vital Signs x48h Temp Pulse Resp BP Pulse Ox 03/07/19 11:14 39.1 C H 03/07/19 11:06 38.5 C H 75 24 158/60 H 94 03/07/19 09:30 38.4 C H 85 19 155/52 H 91 L 03/07/19 08:25 38.5 C H 87 18 151/50 H 97 03/07/19 07:05 91 30 H 03/07/19 06:26 39.3 C H 92 36 H 191/79 H 94 03/07/19 06:18 37.8 C H 104 H 22 191/71 H 95 - Physical Exam General Appearance: positive: No acute distress, Alert Eyes Bilateral: positive: Normal inspection, PERRL, EOMI, Conjunctivae nml, No scleral icterus ENT: positive: ENT inspection nml, Pharynx nml, No signs of dehydration Neck: positive: Nml inspection, Thyroid nml, No JVD, Trachea midline. negative: Thyromegaly Respiratory: positive: Chest non-tender, Rhonchi (Prolonged expiratory phase with rhonchi). negative: Wheezes, Rales Cardiovascular: positive: Regular rate & rhythm, No murmur, No gallop. negative: JVD present, Gallop/S3, Gallop/S4 Peripheral Pulses: positive: 2+ Abdomen: positive: Non-tender, No organomegaly, Nml bowel sounds, No distention. negative: Tenderness Back: positive: Nml inspection Skin: positive: Warm, Other (Bilateral lower extremity lymphedema with erythematous involvement to the left lower extremity anterior portion with no bullous formations or satellite lesions.). negative: Cyanosis, Laceration (cm), Embolic lesions Extremities: positive: Full ROM, Pedal edema, Other (There is bilateral lower extremity lymphedema. Cellulitic appearance to the left lower extremity.). negative: Calf tenderness, Joint swelling, Marlen's sign/cords Neurologic/Psychiatric: positive: Oriented x3, CN's nml (2-12) Sepsis Event Note (H) - Evaluation Possible source of Sepsis: positive: Skin/soft tissue - Sepsis Criteria Sepsis Criteria: Recorded Temperature greater than 38.3C or Less than 36C, WBC count greater than 12,000 or less than 4000 Conclusion/Plan - Problem List (1) Sepsis Conclusion/Plan: Patient has known source of sepsis which is the left lower extremity cellulitis with underlying chronic lymphedema with possible lymphangitis. Patient with uncontrolled type 2 diabetes mellitus which were underlying factors that contributed to this. Patient does have a history of 2 falls however denies having contusions to the left lower extremity. On exam patient has left lower extremity erythematous involvement to encompass the entire tibial aspect of her leg. Her lactic acid was only 1.4. 2 sets of blood cultures were drawn. Sputum Gram stain and culture were ordered. Chest x-ray is not convincing of a commutity acquired pneumonia or consolidations however this could be masked by patient's fluid overload/borderline CHF. In addition patient's flu swab was negative, rapid strep negative, throat culture to follow. Will place on empiric broad-spectrum IV antibiotics with Zosyn and may add coverage for community- acquired MRSA (i. e vancomycin or bactrim DS). 2 sets of blood cultures to follow. Qualifiers: Sepsis type: sepsis due to unspecified organism Qualified Code(s): A41.9 - Sepsis, unspecified organism (2) Lower extremity cellulitis Conclusion/Plan: Patient has bilateral chronic lymphedema with superimposed left lower extremity cellulitis. Patient was on Lasix for her lymphedema. Will cover for community- acquired MRSA by adding vancomycin to regimen. Unlikely that this may be underlying DVT. Will obtain ESR. Qualifiers: Laterality: left Qualified Code(s): L03.116 - Cellulitis of left lower limb (3) Congestive heart failure Conclusion/Plan: Patient with a history of grade 1 diastolic dysfunction based on her prior echo. Patient's prior echo on 11/23/2018 showed mild concentric left ventricular hypertrophy. Limited 2D echo shows 60 to 65% ejection fraction, there is mild- mod pulm htn and LVH. There was no hemodynamic significant cardiac valve disease noted. Patient's chest x-ray shows borderline CHF/fluid overload with BNP of 302. Patient had been cleared by cardiology sometime in October of this year and essentially was told that her heart was normal. However, patient has bilateral chronic lymphedema with 1-2+ pitting edema. Will give Lasix 20 mg IV x1 despite, patient's creatinine is 1.1 and with a history of chronic kidney disease with baseline ranging between 0.8-1.0. Differential diagnosis: Viral cardiomyopathy/idiopathic CM. Qualifiers: Heart failure type: diastolic Heart failure chronicity: acute on chronic Qualified Code(s): I50.33 - Acute on chronic diastolic (congestive) heart failure (4) Exacerbation of asthma Conclusion/Plan: Patient with known history of asthma uses rescue inhaler with more frequent use. Currently is not wheezing however will add Pulmicort plus Perforomist twice daily along with duo nebs every 4 as needed for wheezing. Likely triggered by unknown environmental allergen versus infectious cause. Incentive spirometry, pulmonary toileting, and supplemental oxygenation as patient was borderline hypoxic in ED. Qualifiers: Asthma severity: mild Asthma persistence: persistent Qualified Code(s): J45.31 - Mild persistent asthma with (acute) exacerbation (5) Acute renal insufficiency Conclusion/Plan: Patient had been on Lasix as well as losartan for her hypertension. This may have pre-septated prerenal azotemia. Patient with underlying chronic kidney disease stage II with baseline creatinine 0.8-1.0. Will avoid nephrotoxic agents. Correct underlying electrolyte disturbances. Judicious IV fluids as patient's BNP was elevated with borderline CHF on chest x-ray. (6) Uncontrolled type 2 diabetes mellitus Conclusion/Plan: Patient has mwf-vkfmiii-hqyhkshkv type [address] on insulin sliding scale along with Lantus for basal coverage. Will hold metformin for now. Carb controlled diet with hemoglobin A1c to follow. Qualifiers: Glycemic state: with hyperglycemia Qualified Code(s): E11.65 - Type 2 diabetes mellitus with hyperglycemia (7) Hypertension Conclusion/Plan: Patient was on losartan as well as Lasix. Will place on IV hydralazine with BP parameters. Qualifiers: Hypertension type: essential hypertension Qualified Code(s): I10 - Essential (primary) hypertension (8) Chronic kidney disease, stage II (mild) Conclusion/Plan: Patient's prior creatinine 0.8-1.0 on [employer]. We will continue with medical management. Avoiding nephrotoxic agents, judicious IV fluids, correcting lytes. Patient's was previously on Lasix and losartan these are to be held as well. (9) Advanced care planning/counseling discussion Conclusion/Plan: Patient has a advanced directive at home. Patient desires DNR/DNI at this time. Plan of care along with goals of care, medical conditions and trajectory of illness discussed in detail. - Lab Results Lab results reviewed: Yes Fish Bones: 03/07/19 06:50 03/07/19 06:50 - Diagnostic Imaging Results Diagnostic Imaging Results: positive: Final report reviewed - EKG Results EKG Interpreted Independently: Yes EKG Comparison: Old EKG unavailable Core Measures - Anticipated LOS I expect patient to be DC'd or transferred within 96 hours.: Yes - Issues Hospital Issues and Management Plan: Pending blood cultures and further imaging studies patient will be telemetry observation to receive empiric IV antibiotics, IV fluids, medical and supportive care - DVT/VTE - Prophylaxis VTE/DVT Device ordered at admit?: Yes VTE/DVT Prophylaxis med ordered at admit?: Yes - Stroke - Rehab Assessment Rehab services assessment to be ordered?: No Not Ordered - Medical Reason: Not indicated - AMI - Statin at Admit Aspirin Prescribed on Admit: No Not Ordered - Medical Reason: Not indicated
[2019-03-07] MEDS: INSULIN ASPART 300 UNIT/3 ML PEN SUBQ SCH ×3 (13:31→21:04)
[2019-03-07] MEDS ORDERED: VANCOMYCIN PER PHARMACY 100 GM in SODIUM CHLORIDE 0.9% 250 ML IV SCH (14:00)
[2019-03-07] MEDS: PIPERACILLIN/TAZOBACTAM 4.5 GM in SODIUM CHLORIDE 0.9% MINIBAG 100 ML IV SCH ×2 (14:03→20:00)
[2019-03-07] MEDS ORDERED: VANCOMYCIN INJ 2 GM, VANCOMYCIN INJ 250 MG in SODIUM CHLORIDE 0.9% 500 ML IV SCH (15:00)
[2019-03-07] MEDS: SODIUM CHLORIDE FLUSH 0.9% 10 ML SYRINGE IVP SCH (16:57)
[2019-03-07] MEDS: BUDESONIDE 0.5 MG/2 ML NEB INH SCH (19:51)
[2019-03-07] MEDS: IPRATROPIUM/ALBUTEROL 3 ML NEB INH PRN (19:51)
[2019-03-07] MEDS: FORMOTEROL FUMARATE NEB 20 MCG/2 ML INH SCH (19:52)
[2019-03-07] MEDS ORDERED: ATORVASTATIN 10 MG TABLET PO SCH (21:00)
[2019-03-07] MEDS ORDERED: INSULIN GLARGINE 300 UNIT/3 ML PEN SUBQ SCH (21:00)
[2019-03-07] MEDS: HEPARIN 5,000 UNIT/ML VIAL SUBQ SCH (21:03)
[2019-03-07] MEDS: FAMOTIDINE 20 MG TABLET PO SCH (21:04)
[2019-03-08] MEDS: SODIUM CHLORIDE FLUSH 0.9% 10 ML SYRINGE IVP SCH ×2 (00:57→08:37)
[2019-03-08] MEDS: PIPERACILLIN/TAZOBACTAM 4.5 GM in SODIUM CHLORIDE 0.9% MINIBAG 100 ML IV SCH ×2 (01:01→08:37)
[2019-03-08 06:29] LABS: BASOPHILS % (AUTO) 0.2 %; HGB - HEMOGLOBIN 11.4 g/dL (12.0-16.0); LYMPHOCYTES # (AUTO) 0.9 10^3/uL (1.5-3.5); LYMPHOCYTES % (AUTO) 7.7 %; MEAN CORPUSCULAR HEMOGLOBIN 28.8 pg (27.0-31.0); MEAN CORPUSCULAR VOLUME 84.7 fL (81.0-99.0); MEAN PLATELET VOLUME 8.8 fL (7.9-10.8); MONOCYTES # (AUTO) 0.5 10^3/uL (0.0-1.0); NEUTROPHILS # (AUTO) 10.6 10^3/uL (1.5-6.6); NEUTROPHILS % (AUTO) 88.1 %; PLT - PLATELET COUNT 169 10^3/uL (130-450); RED BLOOD COUNT 3.96 10^6/uL (4.20-5.40); RED CELL DISTRIBUTION WIDTH 14.8 % (12.0-15.0); WHITE BLOOD COUNT 12.1 x10^3/uL (4.8-10.8)
[2019-03-08 06:47] LABS: ALBUMIN 3.1 g/dL (3.2-5.5); BUN - BLOOD UREA NITROGEN 22 mg/dL (6-20); CALCIUM 8.4 mg/dL (8.5-10.3); CARBON DIOXIDE - CO2 23 mmol/L (21-32); CHLORIDE 109 mmol/L (101-111); CHOL/HDL RATIO 3.1 (<4.4); CHOLESTEROL 206 mg/dL; GFR - MDRD 53 (>89); GLUCOSE 198 mg/dL (70-100); HDL CHOLESTEROL 67 mg/dL; LDL CHOLESTEROL,CALCULATED 122 mg/dL; LDL/HDL RATIO 1.8 (<4.4); SODIUM 142 mmol/L (135-145); VLDL CHOLESTEROL 17 mg/dL
[2019-03-08] MEDS: BUDESONIDE 0.5 MG/2 ML NEB INH SCH (07:45)
[2019-03-08] MEDS: IPRATROPIUM/ALBUTEROL 3 ML NEB INH PRN (07:45)
[2019-03-08] MEDS: FORMOTEROL FUMARATE NEB 20 MCG/2 ML INH SCH (07:45)
[2019-03-08] MEDS ORDERED: FUROSEMIDE 20 MG/2 ML VIAL IVP ONE (08:15)
[2019-03-08] MEDS: FAMOTIDINE 20 MG TABLET PO SCH (08:30)
[2019-03-08] MEDS: HEPARIN 5,000 UNIT/ML VIAL SUBQ SCH (08:32)
[2019-03-08] MEDS: INSULIN ASPART 300 UNIT/3 ML PEN SUBQ SCH ×2 (08:33→12:08)
[2019-03-08 08:58] VITALS: BP 151/52
[2019-03-08] MEDS ORDERED: POLYETHYLENE GLYCOL 3350 17 GM PACKET PO SCH (09:00)
[2019-03-08] MEDS ORDERED: CHOLECALCIFEROL 1,000 UNIT TABLET PO SCH (09:00)
[2019-03-08] MEDS ORDERED: LACTOBACILLUS RHAMNOSUS GG CAPSULE PO SCH (09:00)
--- NOTE | 2019-03-08 10:44 | Discharge Plan ---
Discharge Plan Disposition: Home, Self Care Condition: Stable Prescriptions: amLODIPine [Norvasc] 5 mg PO DAILY #30 tablet Atorvastatin [Lipitor] 20 mg PO QPM #30 tablet Clindamycin HCl 600 mg PO BID 7 Days #28 capsule Lactobacillus Rhamnosus GG [Culturelle] 1 cap PO BID #20 capsule Montelukast [Singulair] 10 mg PO QPM #30 tablet Diet: Diabetic Activity Restrictions: Activity as Tolerated Shower Restrictions: No Driving Restrictions: Yes Instruction Topics: Triggers Asthma, ED Infec Skin Cellulitis, Infec Wound Recognize Tx, Diabetes Type 2 Oral Meds, Hypoglycemia, Diabetes Carbs, Diabetes Healthy Meals Additional Instructions or Follow Up instructions: You were admitted for a process known as sepsis which was an alteration of your labs along with your vital signs in conjunction with a known infection to your left lower extremity as a result of your predisposing risk factors of diabetes, chronic lymphedema, and possible poor wound healing. You were given intravenous antibiotics throughout your hospitalization. You were initially thought to have a pneumonia however you do have mildly impaired heart function which is known as diastolic CHF. In this case this was an acute on chronic such event as your prior echocardiogram had specified a abnormal diastolic filling pattern. He was given Decadron in the emergency department and therefore had a hyperglycemic excursion for which this was difficult to control on this hospitalization. I would encourage you to take metformin and possibly follow-up with your PCP to see if any other oral hypoglycemics are needed. You are also found to have a total cholesterol of 206 and an LDL of 122 which is elevated in the setting of your existing diabetes this needs to be less than 100 and therefore your continuation of omega-3 fatty acids along with a new prescription of atorvastatin 20 mg daily will be needed. In addition your chronic lymphedema will need to be addressed as an outpatient. You will take clindamycin which is an antibiotic prescribed for your current infection for an additional 7 days and along with a probiotic that is essential to prevent opportunistic infection. You had an echocardiogram which showed a preserved ejection fraction with abnormal diastolic filling pressure which may have given you shortness of breath, You have diastolic heart failure. This can be treated with afterload reducing agents which will need to be addressed with your primary care provider. You will continue with Losartan as well as furosemide however these may impair your kidneys. I will prescribe you Norvasc which will improve your afterload reduction to avoid further diastolic CHF. Your ejection fraction on the echocardiogram on this visitation was preserved. You had an asthma exacerbation/flare and these may be triggered by allergens. I would encourage you to avoid allergens such as cat dander, outdoor pollens from tree or and/or abrams, however this may be unavoidable I will prescribe you Singulair to improve your overall allergen induced asthma symptoms. He will continue with your Advair as well as a rescue inhaler. Please follow-up with your primary care provider Tia Lipscomb in 1 or 2 weeks to reassess your need for hyperglycemic control on your diabetes. In addition she will examine your leg to see if the cellulitis has cleared up. No Smoking: If you smoke, Please STOP! Call for help. Follow-up with: Tia Lipscomb PA [Provider Admit Priv/Credential] - 2 Weeks (Follow-up with PCP in 1 or 2 weeks)
--- NOTE | 2019-03-08 11:36 | DISCHARGE SUMMARY ---
Discharge Summary Admit Date: 03/07/19 Discharge Date: 03/08/19 Discharging Provider: Dr. Lobo Primary Care Provider: Tia Lipscomb Code Status: Do Not Attempt Resuscitation Condition at Discharge: Good Discharge Disposition: 01 Home, Self Care - DIAGNOSES Admission Diagnoses: (1) Sepsis (2) Lower extremity cellulitis (3) Congestive heart failure (4) Exacerbation of asthma (5) Acute renal insufficiency (6) Uncontrolled type 2 diabetes mellitus (7) Hypertension (8) Chronic kidney disease, stage II (mild) Discharge Diagnoses with Status of Each Condition: (1) Sepsis, Resolved (2) Lower extremity cellulitis, Improved (3) Acute on chronic diastolic Congestive heart failure, Stable (4) Exacerbation of asthma, Resolved (5) Acute renal insufficiency, Resolved (6) Uncontrolled type 2 diabetes mellitus, Hyperglycemia steroid-induced, stable (7) Hypertension, Stable (8) Chronic kidney disease, stage II (mild), Stable (9) Chronic lymphedema, Stable ( - HPI History of Present Illness: This is an 78-year-old woman who lives alone With a significant past medical history of asthma, txu-pevtyse-tdyueuxfn type 2 diabetes mellitus, hypothyroidism, hypertension, osteoarthritis, morbid obesity with BMI 40.7, former smoker, chronic lymphedema who p/w fever Tm 102.3, Nonproductive cough with generalized malaise/weakness along with worsening lower extremity swelling with pain to the left lower extremity versus right lower extremity. Patient last night she was getting up off the toilet and had walked out towards the living room when she fell landing on her butt. She was able to crawl in the living room and crawl up into her chair where she slept a little bit through the night then she got up this morning and fell again while it was still dark outside. Then she just laid on the floor for a while where she was able to crawl over to the corner to get her phone. She called 911. She is that she has been feeling short of breath and in fact had to use her rescue inhaler last night. She denies any current chest pain and denies any history of heart disease or congestive heart failure. In fact she says she was seen back in October by a enterprise systems administrator and was told that her heart was in good shape. She did not hit her head last night. Denies dizziness. She has been coughing occasionally bringing up some white phlegm and she has a stuffiness in her nose blowing out white mucus. She denies nausea or vomiting. Patient states that she has had upper respiratory symptoms ever since her [place] cruise that she came back after October. On exam patient had erythematous left lower extremity involvement with no satellite pustules or bullous lesions. On the initial lab/imaging assessment patient was found to have a BNP of 302 with a chest x-ray showing borderline CHF with fluid overload and could not appreciate consolidations or infiltrates due to this. CO2 was 19, glucose 216, creatinine 1.1 with baseline creatinine ranging between 0.8-1.0 with prior history of chronic kidney disease, T bilirubin of 1.1, LFTs within normal limits, troponin x1 within normal limits, EKG showed Borderline left axis deviation with sinus rhythm. Patient's WBC count was 15.7 with normal electrolytes. Patient had an L-spine x-ray due to her falling down with no evidence of fractures other than degenerative disc disease. 2 sets of blood cultures were drawn, lactic acid was 1.4, flu swab as well as throat culture group A strep sputum Gram stain culture were ordered in the ED. Patient will be admitted for further evaluation management and treatm ent under obvious status. - HOSPITAL COURSE Hospital Course: Ms. Marcelina Reed is a pleasant 78-year-old with a known history of diastolic heart failure, chronic lymphedema, asthma, type 2 diabetes mellitus cpl-uhzkvnq-axazwtoih, chronic kidney disease stage II presenting with acute asthma exacerbation with shortness of breath as patient had been exposed to allergens in the past. In addition patient was noted to have increased leg edema mainly to her left lower extremity. This was noted to be the cause of her sepsis due to her ongoing fevers for several days with generalized weakness and malaise. Patient had an elevated white count of 15.1 initially on admit and was given Decadron as patient was actively wheezing with chest x-ray showing fluid o verload indicative of acute on chronic diastolic heart failure. BNP was elevated to 302. Patient's glucose had spiked to 296 as a result of Decadron. Patient's initial creatinine was 1.1 but received fluids and was 1.0 upon discharge. Patient responded well to IV Zosyn and vancomycin combination. Patient serum ketones as well as flu and group B strep were unremarkable. Troponin was unremarkable. Patient received several doses of Lasix to decrease patient's pulmonary vascular congestion fluid overload seen on chest x-ray. Patient was told that her chronic lymphedema on top of her underlying diabetes was a risk factor for her cellulitis and with hyperlipidemia to have underlying causes any ideologies corrected as this would prevent her from further complications. Patient had improved on her respiratory function and did not require supplemental oxygenation. Patient's echocardiogram showed a diastolic dysfunction grade 1 with impaired diastolic filling pressure with no overt stru ctural heart disease and mild LVH with a preserved ejection fraction. Patient cellulitis improved markedly from the demarcated line. Patient to continue with clindamycin for total 7 days along with probiotic that will be prescribed. In addition patient will have afterload reducing agent Norvasc to be prescribed and to continue with her losartan Lasix. Patient will continue with her rescue inha ler as well as Advair for her continued use for allergy triggered asthma. Singulair will be prescribed to augment and provide further coverage. Patient to follow-up with PCP in 1 to 2 weeks for the reevaluation of patient's cellulitis resolution. - ALLERGIES Allergies/Adverse Reactions: Allergies Allergy/AdvReac Type Severity Reaction Status Date / Time No Known Drug Allergies Allergy Verified 11/05/18 10:38 - MEDICATIONS Home Medications: Ambulatory Orders Medication Instructions Recorded Confirmed Furosemide 20 mg PO DAILY PRN 09/02/15 03/07/19 Losartan [Cozaar] 25 mg PO DAILY 09/02/15 03/07/19 metFORMIN [Glucophage] 1,000 mg ORAL DAILY 09/02/15 03/07/19 Albuterol Sulfate [Proair Hfa 1 - 2 puffs INH Q4H PRN 11/05/18 03/07/19 Inhaler] Cholecalciferol (Vitamin D3) 1 cap PO DAILY 03/07/19 03/07/19 [Vitamin D3] Fluticasone/Salmeterol [Advair 1 puffs INH BID 03/07/19 03/07/19 250-50 Diskus] [place]-3/Dha/Epa/Fish Oil [Fish Oil 1 cap PO DAILY 03/07/19 03/07/19 1,000 mg Softgel] metFORMIN [Glucophage] 500 mg PO 1700 03/07/19 03/07/19 Atorvastatin [Lipitor] 20 mg PO QPM #30 tablet 03/08/19 Clindamycin HCl 600 mg PO BID 7 Days #28 capsule 03/08/19 Lactobacillus Rhamnosus GG 1 cap PO BID #20 capsule 03/08/19 [Culturelle] Montelukast [Singulair] 10 mg PO QPM #30 tablet 03/08/19 amLODIPine [Norvasc] 5 mg PO DAILY #30 tablet 03/08/19 - PHYSICAL EXAM AT DISCHARGE General Appearance: positive: No acute distress, Alert Eyes Bilateral: positive: Normal inspection, PERRL, EOMI ENT: positive: ENT inspection nml, Pharynx nml, No signs of dehydration Neck: positive: Nml inspection, Thyroid nml, No JVD, Trachea midline. negative: Thyromegaly Respiratory: positive: Chest non-tender, No respiratory distress, Breath sounds nml Cardiovascular: positive: Regular rate & rhythm, No murmur, No gallop Peripheral Pulses: positive: 2+ Abdomen: positive: Non-tender, No organomegaly, Nml bowel sounds, No distention Skin: positive: Color nml, Warm, Other (Left lower extremity with improved erythematous region to the anterior tibial aspect.). negative: Puncture wound, Embolic lesions Extremities: positive: Non-tender, Full ROM, Pedal edema (1+ pitting Edema to the bilateral lower extremities). negative: Calf tenderness Neurologic/Psychiatric: positive: Oriented x3, CN's nml (2-12) - LABS Result Diagrams: 03/08/19 05:47 03/08/19 05:47 - FOLLOW UP Follow Up: Follow-up with Tia Lipscomb in 1 to 2 weeks. - TIME SPENT Time Spent in Discharge (Minutes): 35
[2019-03-08] MEDS ORDERED: VANCOMYCIN INJ 1 GM, VANCOMYCIN INJ 500 MG in SODIUM CHLORIDE 0.9% 500 ML IV SCH (15:00)
[2019-03-08] MEDS ORDERED: ATORVASTATIN 40 MG TABLET PO SCH (21:00)
[2019-03-09] MEDS ORDERED: FUROSEMIDE 20 MG/2 ML VIAL IVP SCH (09:00)
== END 2019-03-08 13:00 | disposition home or self-care (01) ==
LOC: EDUNIT# → ED 06:18 → MS2 11:47
PROVIDERS: ADMIT Family Medicine; ATTEND Family Medicine
DX: A41.9 Sepsis, unspecified organism (principal); L03.116 Cellulitis of left lower limb; I13.0 Hypertensive heart and chronic kidney disease with heart failure and stage 1 through stage 4 chronic kidney disease, or unspecified chronic kidney disease; I50.33 Acute on chronic diastolic (congestive) heart failure; N18.2 Chronic kidney disease, stage 2 (mild); E11.22 Type 2 diabetes mellitus with diabetic chronic kidney disease; E11.65 Type 2 diabetes mellitus with hyperglycemia; Z79.84 Long term (current) use of oral hypoglycemic drugs; J45.31 Mild persistent asthma with (acute) exacerbation; N28.9 Disorder of kidney and ureter, unspecified; I89.0 Lymphedema, not elsewhere classified; E66.01 Morbid (severe) obesity due to excess calories; Z68.41 Body mass index [BMI] 40.0-44.9, adult; M51.36 Other intervertebral disc degeneration, lumbar region; Z66 Do not resuscitate
CPT/HCPCS: 36415; 71045; 72100; 80053; 80061; 80069; 81001; 81599; 82009; 83605; 83690; 83880; 84484; 85025; 87040; 87070; 87275; 87276; 87430; 93005; 93308; 94640; 96365; 96366; 96367; 96372; 96375; 99284; A9270; G0378; J1815; J3370; J7626; 81003; 83036; 83721; 87086

== ENCOUNTER 2021-05-22 08:00 | Outpatient (CLI) | payer MEDICARE, OTHER | END 2021-05-22 23:59 | disposition home or self-care (01) | LOC: LAB.S 08:00 | PROVIDERS: ATTEND Emergency Medicine | DX: R07.0 Pain in throat (principal); Z20.822 Contact with and (suspected) exposure to COVID-19 | CPT/HCPCS: 87070; U0004 ==

== ENCOUNTER 2021-10-12 14:05 | Outpatient (CLI) | payer MEDICARE, OTHER ==
--- NOTE | 2021-10-12 18:17 | XRAY Report ---
PROCEDURE: Thoracic Spine 2 View INDICATIONS: LUMBAR RADIOCULOPATHY TECHNIQUE: 3 views of the thoracic spine were acquired. COMPARISON: None. FINDINGS: Bones: No fractures or dislocations. No suspicious bony lesions. 12 pairs of ribs are noted, and a ppear intact where visualized. Multilevel disc desiccation is present. Scattered areas of bridging o steophytes are present. Soft tissues: No paravertebral stripe thickening. IMPRESSION: Degenerative changes as above. Reviewed by: Indiana Spicer MD on 10/12/2021 6:16 PM [facility] Approved by: Indiana Spicer MD on 10/12/2021 6:16 PM [facility] Station ID: [id number]
--- NOTE | 2021-10-12 18:19 | XRAY Report ---
PROCEDURE: Lumbar Spine 2 View INDICATIONS: LUMBAR RADIOCULOPATHY TECHNIQUE: 3 views of the lumbar spine were acquired. COMPARISON: Thoracic spine x-ray 10/12/2021, lumbar spine x-ray 03/07/2019 FINDINGS: Bones: 5 [id number] vertebrae are present. There is normal bony alignment. No vertebral maria c dy compression fractures. No suspicious bony lesions. Diffuse degenerative disc space disease is pr esent throughout the lumbar spine. Overall appearance is relatively stable compared to prior exam. Th ere remains approximately 4 mm anterolisthesis of L4 on L5. Osteopenia is present. Striations are pre sent at the level of L5 vertebral body possibly representing a hemangioma, unchanged. Multilevel face t hypertrophy is present. There is narrowing of the foramina from L3-4 through L5-S1, mild to moderat e and progressive compared to prior exam. Soft tissues: Overlying bowel gas pattern is normal. No suspicious soft tissue calcifications. IMPRESSION: Progressive degenerative changes as described above. Reviewed by: Indiana Spicer MD on 10/12/2021 6:18 PM PST Approved by: Indiana Spicer MD on 10/12/2021 6:18 PM PST Station ID: [id number]
--- NOTE | 2021-10-12 18:20 | DEXA Report ---
PROCEDURE: Dexa Spine and/or Hip INDICATIONS: POST MENOPAUSAL TECHNIQUE: Dual energy x-ray absorptiometry (DXA) was performed on a [employer] System. Regions measur ed are the AP Spine, femoral neck, and if needed forearm. COMPARISON: DEXA 07/06/2017 FINDINGS: Lumbar Spine: Bone Mineral Density 1.106 g/cm/cm,T score -0.6, compared to -1.2 Left Hip: Bone Mineral Density 0.783 g/cm/cm,T score -1.8, compared to -1.6 Left Femoral Neck: Bone Mineral Density 0.707 g/cm/cm, T score -2.4, compared to -2.0 (T score greater or equal to -1.0: NORMAL) (T score from -1.1 to -2.4: OSTEOPENIA) (T score less than or equal to -2.5 to: OSTEOPOROSIS) Impression: Progressive osteopenia within left hip and femoral neck now borderline for osteoporosis i n the left femoral neck. Improved appearance of bone mineral density within the lumbar spine. Patients with diagnosis of osteoporosis or osteopenia should have regular bone mineral density assess ment. For those eligible for Medicare, routine testing is allowed once every 2 years. Testing frequ ency can be increased for patients who have rapidly progressing disease or for those who are receivin g medical therapy to restore bone mass. Reviewed by: Indiana Spicer MD on 10/12/2021 6:19 PM PST Approved by: Indiana Spicer MD on 10/12/2021 6:19 PM PST Station ID: [id number]
--- NOTE | 2021-10-12 23:28 | Ultrasound Report ---
PROCEDURE: Duplex Lwr Ext Arterial Bilat INDICATIONS: LOCALIZED EDEMA TECHNIQUE: Color and pulse Doppler interrogation was performed of both lower extremity arterial systems, with im age documentation. COMPARISON: None FINDINGS: Right lower extremity: Common femoral artery: 191 cm/sec, with triphasic flow. Deep femoral artery: 91 cm/sec, with triphasic flow. Proximal superficial femoral artery: 154 cm/sec, with triphasic flow. Mid superficial femoral artery: 114 cm/sec, with triphasic flow. Distal superficial femoral artery: 91 cm/sec, with biphasic flow. Popliteal artery: 118 cm/sec, with triphasic flow. Posterior tibial artery: 107 cm/sec, with biphasic flow. Anterior tibial artery/dorsalis pedis: 102/50 cm/sec, with biphasic flow. Clark-scale imaging description: Mild plaque. No hemodynamic stenosis. Left lower extremity: Common femoral artery: 129 cm/sec, with triphasic flow. Deep femoral artery: 112 cm/sec, with triphasic flow. Proximal superficial femoral artery: 119 cm/sec, with triphasic flow. Mid superficial femoral artery: 112 cm/sec, with biphasic flow. Distal superficial femoral artery: 97 cm/sec, with biphasic flow. Popliteal artery: 117 cm/sec, with biphasic flow. Posterior tibial artery: 106 cm/sec, with biphasic flow. Anterior tibial artery/dorsalis pedis: 114/79 cm/sec, with biphasic flow. Clark-scale imaging description: Mild plaque. No hemodynamically stenosis IMPRESSION: Unremarkable bilateral duplex arterial ultrasound for patient age. Mild plaque. Widely patent vessels . Normal waveforms. Reviewed by: Jose Kovacs MD on 10/12/2021 11:27 PM PST Approved by: Jose Kovacs MD on 10/12/2021 11:27 PM PST Station ID: [id number]
== END 2021-10-12 14:06 | disposition home or self-care (01) ==
LOC: DI 14:05
PROVIDERS: ATTEND Nurse Practitioner Family
DX: R60.0 Localized edema (principal); Z78.0 Asymptomatic menopausal state; M85.89 Other specified disorders of bone density and structure, multiple sites; M43.16 Spondylolisthesis, lumbar region; M47.26 Other spondylosis with radiculopathy, lumbar region; M51.06 Intervertebral disc disorders with myelopathy, lumbar region; M48.061 Spinal stenosis, lumbar region without neurogenic claudication; M51.14 Intervertebral disc disorders with radiculopathy, thoracic region
CPT/HCPCS: 93925

== ENCOUNTER 2023-07-20 11:57 | Outpatient (CLI) | payer MEDICARE | END 2023-07-20 11:58 | disposition EMS.NT | LOC: EMS 11:57 | DX: M25.561 Pain in right knee (principal); M25.562 Pain in left knee; W01.0XXA Fall on same level from slipping, tripping and stumbling without subsequent striking against object, initial encounter; Y92.008 Other place in unspecified non-institutional (private) residence as the place of occurrence of the external cause ==

== ENCOUNTER 2023-08-30 16:32 | Outpatient (CLI) | payer MEDICARE | END 2023-08-30 23:59 | disposition EMS.NT | LOC: EMS 16:32 | DX: Z03.89 Encounter for observation for other suspected diseases and conditions ruled out (principal) ==

== ENCOUNTER 2023-09-11 15:33 | Outpatient (CLI) | payer MEDICARE ==
--- NOTE | 2023-09-11 16:55 | MRI Report ---
PROCEDURE: LUMBAR SPINE WO INDICATIONS: RIGHT FOOT DROP TECHNIQUE: Noncontrast sagittal T1 spin echo and T2 fast echo, sagittal STIR, axial T1 and T2 fast spin echo thr ough the lumbar spine. In cases with scoliosis, additional coronal T2 fast spin echo may be performe d. COMPARISON: None. FINDINGS: Image quality: Excellent. Alignment and Curvature: There is normal bony alignment. Bone Marrow: Marrow is of normal overall signal. No acute vertebral body compression fractures. Spinal Cord: Conus medullaris terminates at the L1 level. Visualized cord demonstrates normal signa l and size. Paraspinous Soft Tissues: No paravertebral masses. T12-L1: Normal in appearance. L1-L2: Mild ligamentum flavum hypertrophy. L2-L3: Disc desiccation. Ligamentum flavum hypertrophy. L3-L4: Disc desiccation. Broad-based disc bulge. Ligament flavum hypertrophy. Mild left facet arthr osis. L4-L5: Disc desiccation. Ligamentum flavum hypertrophy, facet hypertrophy and arthrosis. L5-S1: Normal in appearance. IMPRESSION: Mild, multilevel degenerative disc disease and facet arthrosis, without significant spinal canal or n eural foraminal narrowing. Reviewed by: Murali Stiles MD on 09/11/2023 4:54 PM PST Approved by: Murali Stiles MD on 09/11/2023 4:54 PM PST Station ID: [id number]
== END 2023-09-11 15:34 | disposition home or self-care (01) ==
LOC: DI 15:33
PROVIDERS: ATTEND Registered Nurse
DX: G57.81 Other specified mononeuropathies of right lower limb (principal); M51.36 Other intervertebral disc degeneration, lumbar region; M47.816 Spondylosis without myelopathy or radiculopathy, lumbar region

== ENCOUNTER 2023-09-12 09:11 | Outpatient (CLI) | payer MEDICARE | END 2023-09-12 09:12 | disposition EMS.NT | LOC: EMS 09:11 | DX: Z03.89 Encounter for observation for other suspected diseases and conditions ruled out (principal) ==

== ENCOUNTER 2023-09-20 11:40 | Outpatient (CLI) | payer MEDICARE, OTHER ==
--- NOTE | 2023-09-20 20:25 | XRAY Report ---
PROCEDURE: Chest 2V INDICATIONS: ORTHOPNEA TECHNIQUE: 2 views of the chest were acquired. COMPARISON: CXR 03/07/2019. FINDINGS: Surgical changes and devices: None. Lungs and pleura: No pleural effusions or pneumothorax. Lungs are clear. Prominent lung volumes. Mediastinum: Mediastinal contours appear normal. Heart size is normal. Bones and chest wall: No suspicious bony lesions. Overlying soft tissues appear unremarkable. IMPRESSION: No acute cardiopulmonary process identified. Reviewed by: Frank Blandon MD on 09/20/2023 8:24 PM PST Approved by: Frank Blandon MD on 09/20/2023 8:24 PM PST Station ID: [id number]
== END 2023-09-20 11:41 | disposition home or self-care (01) ==
LOC: DI.S 11:40
PROVIDERS: ATTEND Registered Nurse
DX: R06.01 Orthopnea (principal)

== ENCOUNTER 2023-10-03 16:49 | Outpatient (CLI) | payer MEDICARE, OTHER | END 2023-10-03 23:59 | disposition EMS.NT | LOC: EMS 16:49 | DX: Z03.89 Encounter for observation for other suspected diseases and conditions ruled out (principal) ==

== ENCOUNTER 2023-12-24 07:32 | Outpatient (CLI) | payer MEDICARE, OTHER | END 2023-12-24 23:59 | disposition critical access hospital (66) | LOC: EMS 07:32 | DX: R53.1 Weakness (principal); R60.0 Localized edema | CPT/HCPCS: A0425; A0429 ==

== ENCOUNTER 2023-12-24 07:57 | Emergency (ER) | payer MEDICARE, OTHER ==
--- NOTE | 2023-12-24 08:08 | ED Physician Documentation ---
PD HPI Fall - Stated complaint Stated Complaint: GLF - History obtained from History obtained from: Patient, Family, EMS - History of Present Illness Mechanism of injury: Other (general weakness of both legs, right particular and was getting out of chair when right foot did not hold her and she slumped to floor. Did not strike head. NO noted injury per se. Could not get up though and daughter could not lift her, so called EMS. Pt with increased bilateral leg edema.) Fall distance: Standing position (was getting out of lift chair.) Where injury occurred: Home Injury(ies) location: No: Head, Neck Associated symptoms: Other (she has had increased edema of both legs over baseline the past week or two. Was to increase her diuretic, but daughter took her to [facility] yesterday to look at assisted living facilities, so pt took less lasix so did not have to urinate. Legs down much of the day. Has chronic dropped foot right.). 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 : None, Incontinence HEENT: None Psych: None Musculoskeletal: Osteoarthritis Derm: None - Past Surgical History Past Surgical History: Yes HEENT: Tonsil/Adenoidectomy Derm: Skin cancer surgery - Present Medications Home Medications: Ambulatory Orders Medication Instructions Recorded Confirmed Furosemide 20 mg PO DAILY PRN 09/02/15 12/24/23 Losartan [Cozaar] 25 mg PO DAILY 09/02/15 12/24/23 metFORMIN [Glucophage] 1,000 mg ORAL DAILY 09/02/15 12/24/23 Albuterol Sulfate [Proair Hfa 1 - 2 puffs INH Q4H PRN 11/05/18 12/24/23 Inhaler] Cholecalciferol (Vitamin D3) 1 cap PO DAILY 03/07/19 12/24/23 [Vitamin D3] Fluticasone/Salmeterol [Advair 1 puffs INH BID 03/07/19 12/24/23 250-50 Diskus] Atkinson-3/Dha/Epa/Fish Oil [Fish Oil 1 cap PO DAILY 03/07/19 12/24/23 1,000 mg Softgel] metFORMIN [Glucophage] 500 mg PO 1700 03/07/19 12/24/23 Atorvastatin [Lipitor] 20 mg PO QPM #30 tablet 03/08/19 12/24/23 Lactobacillus Rhamnosus GG 1 cap PO BID #20 capsule 03/08/19 12/24/23 [Culturelle] Montelukast [Singulair] 10 mg PO QPM #30 tablet 03/08/19 12/24/23 amLODIPine [Norvasc] 5 mg PO DAILY #30 tablet 03/08/19 12/24/23 clindamycin HCL [Clindamycin HCl] 600 mg PO BID 7 Days #28 capsule 03/08/19 12/24/23 - Allergies Allergies/Adverse Reactions: Allergies Allergy/AdvReac Type Severity Reaction Status Date / Time No Known Drug Allergies Allergy Verified 12/24/23 08:12 - Social History Does the pt smoke?: No Smoking Status: Former smoker Does the pt drink ETOH?: Yes Does the pt have substance abuse?: No - Immunizations Immunizations are current?: Yes - POLST Patient has POLST: No PD ED PE NORMAL - Vitals Vital signs reviewed: Yes - General General: Alert and oriented X 3, Well developed/nourished - HEENT HEENT: Atraumatic - Neck Neck: Supple, no meningeal sign, No bony TTP - Cardiac Cardiac: RRR, No murmur - Respiratory Respiratory: No respiratory distress, Clear bilaterally - Abdomen Abdomen: Soft, Non tender - Derm Derm: Normal color, Warm and dry - Extremities Extremities: Other (3+ edema in both legs from toes up to thighs. No blistering. Textured skin c/w chronic edema and likely lymphedema. ) - Neuro Neuro: Alert and oriented X 3, No sensory deficit, Normal speech, Other (general weakness of both legs but particular foot drop right foot. ) Eye Opening: Spontaneous Motor: Obeys Commands Verbal: Oriented GCS Score: 15 Results - Vitals Vitals: Vital Signs - 24 hr 12/24/23 12/24/23 12/24/23 08:05 10:07 13:08 Temperature 36.0 C L Heart Rate 64 64 60 Respiratory 18 20 15 Rate Blood Pressure 167/82 H 132/66 H 132/66 H O2 Saturation 96 95 96 Oxygen O2 Source Room air - Labs Labs: Laboratory Tests 12/24/23 12/24/23 12/24/23 08:56 08:56 08:56 WBC 5.0 RBC 4.53 Hgb 13.0 Hct 40.4 MCV 89.2 MCH 28.7 MCHC 32.2 RDW 14.5 Plt Count 237 MPV 10.2 Neut # (Auto) 3.3 Lymph # (Auto) 1.1 L Stephenson # (Auto) 0.3 Eos # (Auto) 0.2 Baso # (Auto) 0.1 Absolute Nucleated RBC 0.00 Nucleated RBC % 0.0 Sodium 140 Potassium 4.3 Chloride 108 Carbon Dioxide 26 Anion Gap 6.0 BUN 30 H Creatinine 0.9 Estimated GFR (MDRD) 60 L Glucose 114 H Calcium 9.8 Magnesium 1.9 Total Bilirubin 0.5 AST 24 ALT 25 Alkaline Phosphatase 44 B-Natriuretic Peptide 204 H Total Protein 6.4 Albumin 4.0 Globulin 2.4 Albumin/Globulin Ratio 1.7 Lipase 54 PD Medical Decision Making - ED course Complexity details: reviewed results (renal function and lytes are reasonable. BNP is low. Does not seem general fluid overload. LEgs edema consider vascular though almost appears lymphedema. ), re-evaluated patient (daughter was wanting pt to be able to stay in ER for good part of the day. There is not really admission criteria, and pt was given IV lasix with output of a liter. Unna boots type dressing on both legs. ), considered differential, d/w patient, d/w family (daughter) Departure - Departure Disposition: 01 Home, Self Care Clinical Impression: Bilateral edema of lower extremity, Foot drop, right, Peroneal nerve palsy, Impaired ambulation Condition: Stable Record reviewed to determine appropriate education?: Yes Instructions: ED Edema Legs Bilateral Follow-Up: SUZI VELOZ ARNP [Physician No Access] - Comments: Continue with your current diuretic and medication. I would increase your diuretic to double dose of either 2 tablets together in the morning or more commonly your normal dose in the morning and a second dose around 12 or 1 after lunch. This often is more effective that way. Leave the wraps on the legs over the next few days and elevate your legs often to help reduce swelling. We do worry about electrolyte loss with increased diuretics so would suggest adding a mild potassium supplement if you do not already for the next week or 2. Your electrolytes currently are in the normal range. I put in social work consult. They are not here today but should last picker on it tomorrow in order to contact your [facility] home health service. Our bilingual social worker should know if you would qualify for increased services from the current weekly aide and physical therapy to perhaps even 3 times a week along with "wound care" to help with wraps over the legs etc. Presumably they will contact you tomorrow about any increase in services. We also provided you ankle brace to help try to reduce the amount of foot drop when you are up and around. This is Velcro and should be able to fit in loose shoes. A custom fitted brace for the foot drop would be more difficult at this point because of the variability of the edema and swelling and so this form of it under the foot and to the sides is more adjustable and can adapt to the changing edema for the short-term anyway. Forms: PCP List Discharge Date/Time: 12/24/23 13:14
[2023-12-24 09:08] LABS: BASOPHILS # (AUTO) 0.1 10^3/uL (0.0-0.1); BASOPHILS % (AUTO) 1.4 %; EOSINOPHILS # (AUTO) 0.2 10^3/uL (0.0-0.7); HCT - HEMATOCRIT 40.4 % (37.0-47.0); LYMPHOCYTES # (AUTO) 1.1 10^3/uL (1.5-3.5); LYMPHOCYTES % (AUTO) 21.4 %; MEAN CORPUSCULAR HEMOGLOBIN 28.7 pg (27.0-31.0); MEAN CORPUSCULAR HGB CONC 32.2 g/dL (32.0-36.0); MEAN CORPUSCULAR VOLUME 89.2 fL (81.0-99.0); MEAN PLATELET VOLUME 10.2 fL (7.9-10.8); MONOCYTES # (AUTO) 0.3 10^3/uL (0.0-1.0); MONOCYTES % (AUTO) 5.8 %; NEUTROPHILS # (AUTO) 3.3 10^3/uL (1.5-6.6); PLT - PLATELET COUNT 237 10^3/uL (130-450); RED BLOOD COUNT 4.53 10^6/uL (4.20-5.40); RED CELL DISTRIBUTION WIDTH 14.5 % (12.0-15.0)
[2023-12-24] MEDS: FUROSEMIDE 40 MG/4 ML VIAL IVP STA (09:16)
[2023-12-24 09:20] LABS: ALBUMIN/GLOBULIN RATIO 1.7 (1.0-2.2); BILIRUBIN,TOTAL 0.5 mg/dL (0.2-1.0); CALCIUM 9.8 mg/dL (8.5-10.3); CREATININE 0.9 mg/dL (0.6-1.3); MAGNESIUM 1.9 mg/dL (1.7-2.3); POTASSIUM 4.3 mmol/L (3.5-4.5); TOTAL PROTEIN 6.4 g/dL (6.4-8.9)
[2023-12-24 10:12] VITALS: BP 132/66
[2023-12-24 13:09] VITALS: O2SAT 96
== END 2023-12-24 13:14 | disposition home or self-care (01) ==
LOC: EDUNIT# → ED 07:57
DX: R53.1 Weakness (principal); M21.371 Foot drop, right foot; G57.30 Lesion of lateral popliteal nerve, unspecified lower limb; R60.9 Edema, unspecified; I10 Essential (primary) hypertension; E11.9 Type 2 diabetes mellitus without complications; Z79.84 Long term (current) use of oral hypoglycemic drugs; Z87.891 Personal history of nicotine dependence; W07.XXXA Fall from chair, initial encounter
CPT/HCPCS: 36415; 80053; 83690; 83735; 83880; 85025; 96374; 99284

== ENCOUNTER 2023-12-24 13:16 | Outpatient (CLI) | payer MEDICARE, OTHER | END 2023-12-24 23:59 | disposition home or self-care (01) | LOC: EMS 13:16 | PROVIDERS: ATTEND Emergency Medicine | DX: R60.0 Localized edema (principal); Z74.01 Bed confinement status | CPT/HCPCS: A0425; A0428 ==